=== PATIENT | male | born 1965 | race Caucasian/White ===

== ENCOUNTER → 2017-01-15 | Outpatient (CLI) | payer OTHER, MEDICARE ==
[~2017-01-15] MED LIST: ADV500INH INH; ALBU17IN2 INH; BACT800T5 PO; BP MED PO; CARD120T4 PO; COUM1TAB17 PO; EFFE37.527 PO; FLEXERIL PO; MIRAPEX PO; OXYC-299 PO; PERC5TAB6 PO; TYLE325T5 PO; UROXATRAL PO; VICO7.5T11 PO
[2017-01-15 11:32] LABS: ALBUMIN 4.2 GM/DL (3.2-5.2); ALBUMIN/GLOBULIN RATIO 1.24 (1.00-1.93); ALKALINE PHOSPHATASE 80 U/L (45-117); ALT/SGPT 99 U/L (12-78); ANION GAP 10 MEQ/L (8-16); AST/SGOT 46 U/L (15-37); BILIRUBIN,TOTAL 0.4 MG/DL (0.2-1.0); BLOOD UREA NITROGEN 14 MG/DL (7-18); CALCIUM LEVEL 9.1 MG/DL (8.5-10.1); CARBON DIOXIDE LEVEL 28 MEQ/L (21-32); CHLORIDE LEVEL 103 MEQ/L (98-107); CREATININE FOR GFR 0.92 MG/DL (0.70-1.30); FERRITIN 174 NG/ML (26-388); GLOMERULAR FILTRATION RATE > 60.0 (>56); GLUCOSE, FASTING 101 MG/DL (70-105); PERCENT SATURATION 18.8 % (19.7-37.4); POTASSIUM SERUM 4.2 MEQ/L (3.5-5.1); SODIUM LEVEL 141 MEQ/L (136-145); TOTAL IRON BINDING CAPACITY 404 UG/DL (250-450); TOTAL PROTEIN 7.6 GM/DL (6.4-8.2)
[2017-01-16 11:29] LABS: ALBUMIN % 59.3 % (55.8-66.1)
[2017-01-16 11:30] LABS: ALBUMIN 4.51 GM/DL (3.29-5.55); GAMMA GLOBULIN % 15.7 % (11.1-18.8)
[2017-01-17 08:08] LABS: ALPHA 1 ANTITRYPSIN 144 mg/dL (90-200)
== END ==
LOC: M LRY 08:46
PROVIDERS: ATTEND Emergency Medicine
DX: R94.5 Abnormal results of liver function studies (principal)

== ENCOUNTER → 2017-01-15 | Outpatient (CLI) | payer OTHER, MEDICARE ==
--- NOTE | 2017-01-15 10:28 | REP ---
Clinical: Abnormal liver function tests. Technique: Real time mayfield scale ultrasound examination using curved array transducer. Findings: The liver is diffusely echogenic with poor through transmission suggesting fatty infiltration and no obvious focal hepatic lesion identified. Limited evaluation of the pancreas is unremarkable. The patient is status post cholecystectomy. No biliary ductal dilatation is appreciated and the common bile duct measures 5.1 mm diameter. Right kidney is normal in reniform shape without hydronephrosis and measures 11.4 x 5.6 x 5.6 cm. No ascites. Impression: Hepatosteatosis. Signed by Jigar Martinez MD 01/15/2017 10:20 A
== END ==
LOC: M LRY 08:39
PROVIDERS: ATTEND Emergency Medicine
DX: K76.89 Other specified diseases of liver (principal); R94.5 Abnormal results of liver function studies

== ENCOUNTER 2018-08-05 09:03 | Emergency (ER) | payer OTHER, MEDICARE ==
[2018-08-05] MEDS: NS 1,000 ML IV (09:49)
[2018-08-05] MEDS: ONDANSETRON 4MG/2ML VIAL (J2405) IV (09:49)
[2018-08-05] MEDS: MORPHINE 4 MG/ML 1ML VIAL/SYRINGE (J2270) IV (09:50)
[2018-08-05 09:58] LABS: BASO % 0.2 % (0.0-1.0); EOS % 0.6 % (0.0-3.0); HEMATOCRIT 42.3 % (42.0-52.0); IMMATURE GRANULOCYTE % 0.2 % (0-3.0); LYMPH # 0.4 10^3/uL (1.5-4.5); LYMPH % 8.1 % (24.0-44.0); MEAN CORPUSCULAR HGB CONC 33.1 g/dl (32.0-36.5); MEAN CORPUSCULAR VOLUME 90.8 fl (80.0-96.0); MONO # 0.2 10^3/uL (0.0-0.8); MONO % 4.3 % (0.0-5.0); NEUTROPHILS # 4.7 10^3/uL (1.8-7.7); NEUTROPHILS % 86.6 % (36.0-66.0); PLATELET COUNT, AUTOMATED 272 10^3/uL (150-450); RED BLOOD COUNT 4.66 10^6/uL (4.30-6.10); RED CELL DISTRIBUTION WIDTH 12.8 % (11.5-14.5); WHITE BLOOD COUNT 5.4 10^3/uL (4.0-10.0)
[2018-08-05 10:08] LABS: AMORPHOUS SEDIMENT MODERATE (NEGATIVE); APPEARANCE, URINE TURBID (CLEAR); BACTERIA, URINE AUTO NEGATIVE (NEGATIVE); BILIRUBIN, URINE AUTO NEGATIVE (NEGATIVE); BLOOD, URINE BLOOD 2+ (NEGATIVE); COLOR, URINE YELLOW (YELLOW); GLUCOSE, URINE (UA) AUTO NEGATIVE (NEGATIVE); KETONE, URINE AUTO NEGATIVE (NEGATIVE); LEUKOCYTE ESTERASE, URINE AUTO NEGATIVE (NEGATIVE); MUCUS, URINE SMALL (NEGATIVE); NITRITE, URINE AUTO NEGATIVE (NEGATIVE); PROTEIN, URINE AUTO NEGATIVE (NEGATIVE); RBC, URINE AUTO TNTC /HPF (0-3); SPECIFIC GRAVITY URINE AUTO 1.011 (1.002-1.035); SQUAMOUS EPITHELIAL CELL UR AU 0 /HPF (0-6); UROBILINOGEN, URINE AUTO 0.2 mg/dL (0.0-2.0); WBC, URINE AUTO 3 /HPF (0-3)
[2018-08-05 10:28] LABS: ALBUMIN 4.3 GM/DL (3.2-5.2); ALKALINE PHOSPHATASE 70 U/L (45-117); ALT/SGPT 71 U/L (12-78); AMYLASE 47 U/L (25-115); ANION GAP 6 MEQ/L (8-16); AST/SGOT 33 U/L (7-37); BILIRUBIN,DIRECT < 0.1 MG/DL (0.0-0.2); BILIRUBIN,TOTAL 0.3 MG/DL (0.2-1.0); BLOOD UREA NITROGEN 18 MG/DL (7-18); CALCIUM LEVEL 9.1 MG/DL (8.5-10.1); CARBON DIOXIDE LEVEL 30 MEQ/L (21-32); CHLORIDE LEVEL 105 MEQ/L (98-107); CREATININE FOR GFR 1.17 MG/DL (0.70-1.30); GLOMERULAR FILTRATION RATE > 60.0 (>56); GLUCOSE, FASTING 130 MG/DL (70-100); LIPASE 172 U/L (73-393); POTASSIUM SERUM 4.7 MEQ/L (3.5-5.1); SODIUM LEVEL 141 MEQ/L (136-145); TOTAL PROTEIN 8.2 GM/DL (6.4-8.2)
[2018-08-05] MEDS: KETOROLAC 30 MG/ML VIAL (J1885) IV (11:18)
== END 2018-08-05 11:25 | disposition home or self-care (01) ==
LOC: M ED 09:03
DX: N20.1 Calculus of ureter (principal); Z79.899 Other long term (current) drug therapy; Z88.0 Allergy status to penicillin
CPT/HCPCS: J2270

== ENCOUNTER → 2019-01-17 | Outpatient (CLI) | payer OTHER, MEDICARE ==
[~2019-01-17] MED LIST changes: +CART240C3; +EFFE37.5 PO; -EFFE37.527 PO; +HYDR-3716; +IBUP-1022 PO; +NORCOTAB PO; +OXYC-141 PO; -OXYC-299 PO; +PERC5TAB12 PO; -PERC5TAB6 PO; +PROHANCE 279.3MG/ML 15ML VIAL (A9576) As Ordered ONE; +PROHANCE 279.3MG/ML 5ML VIAL (A9576) As Ordered ONE; +ZOFR4TAB14 PO
--- NOTE | 2019-01-17 09:38 | REP ---
MR LUMBAR SPINE WITHOUT CONTRAST: HISTORY: Spondylosis. CONTRAST: ProHance 18 mL. COMPARISON: 10/18/2012. Decreased signal intensity on T2-weighted images is present in the L4-5 intervertebral disc. The disc is decreased in height. These findings are consistent with disc degeneration. There is no disc bulge or herniation at the L1-2 and L2-3 levels. There is hypertrophy of the posterior articulating facets at the L2-3 level. The nerves exit the neural foramina without compression. A diffuse disc bulge is present at the L3-4 level. There is minimal compression of the thecal sac. There is hypertrophy of the posterior articulating facets. The L3 nerves exit the neural foramina without compression. A diffuse disc bulge and small left paracentral and intraforaminal disc protrusion are present at the L4-5 level. There is minimal compression of the thecal sac and left L5 nerve as it exits the thecal sac. There is hypertrophy of the ligamenta flava and posterior articulating facets. The L4 nerves exit the neural foramina without compression. A left laminectomy defect is present. Enhancing scar tissue is present at the laminectomy site and in the left lateral aspect of the spinal canal. The scar tissue involves the left L5 nerve. A diffuse disc bulge is present at the L5-S1 level. There is no thecal sac or nerve compression. There is hypertrophy of the posterior articulating facets. The L5 nerves exit the neural foramina without compression. The conus medullaris is normal in appearance terminating at the level of the T12-L1 intervertebral disc. Increased signal intensity on T2-weighted images is present in the endplates of the L4 and 5 vertebral bodies. This represents degenerative change. IMPRESSION: 1. Diffuse disc bulge at the L3-4 level with minimal thecal sac compression. 2. Diffuse disc bulge and small left paracentral and intraforaminal disc protrusion at the L4-5 level with minimal compression at the thecal sac and left L5 nerve as it exits the thecal sac. A left laminectomy defect is present. Scar tissue involves the left L5 nerve. The disc protrusion is a new finding. 3. Diffuse disc bugle at the L5-S1 level without thecal sac or nerve compression. Electronically Signed by William Carter MD 01/17/2019 09:45 A
== END ==
LOC: M RAD 07:19
PROVIDERS: ATTEND Orthopaedic Surgery
DX: M47.896 Other spondylosis, lumbar region (principal); M51.26 Other intervertebral disc displacement, lumbar region
CPT/HCPCS: 72158; A9576

== ENCOUNTER → 2019-05-13 | Outpatient (REF) | payer OTHER, MEDICARE ==
[~2019-05-13] MED LIST changes: +HYDR-3715 PO; -NORCOTAB PO; -PROHANCE 279.3MG/ML 15ML VIAL (A9576) As Ordered ONE; -PROHANCE 279.3MG/ML 5ML VIAL (A9576) As Ordered ONE
[2019-05-13 11:36] LABS: INR 0.95; PROTHROMBIN TIME 12.4 SECONDS (11.8-14.0)
[2019-05-13 11:37] LABS: PARTIAL THROMBOPLASTIN TIME 27.9 SECONDS (25.0-38.4)
[2019-05-13 11:46] LABS: COLLAGEN EPINEPHRINE 119 SECONDS (74-162)
== END ==
LOC: M LABDRAWP 11:07
PROVIDERS: ATTEND Physical Medicine & Rehabilitation
DX: Z79.01 Long term (current) use of anticoagulants (principal); D69.6 Thrombocytopenia, unspecified

== ENCOUNTER 2019-12-20 08:46 | Inpatient (IN) | payer OTHER, MEDICARE ==
--- NOTE | 2019-12-16 16:04 | HPE ---
DATE OF ADMISSION: 12/21/2019 ATTENDING PHYSICIAN: Dr. Zapata CHIEF COMPLAINT: Chronic low back pain and stiffness. HISTORY: This is a 54-year-old pleasant male with progressively worsening low back pain and stiffness. He has failed to improve with conservative management, including injections, rest, activity modifications and physical therapy (PT). He has pain with any weightbearing, walking, climbing, kneeling, and bending. This affects his activities of daily living. He has elected for surgery for his continued symptoms. He has consented for an L4-5 decompression with posterior lumbar fusion by Dr. Zapata. Spondylolisthesis at the L4-L5 level and a previous decompression with a pars defect. Decreased disc height at L4-5, moderate in nature with possible foraminal stenosis. ALLERGIES: PENICILLIN and AUGMENTIN, reaction of hives. CURRENT MEDICATIONS: - Cartia XT 240 mg one capsule daily - Cymbalta 60 mg once by mouth daily - Duloxetine 60 mg one by mouth daily - gabapentin 600 mg - Mirapex 0.75 mg - nortriptyline 10 mg one by mouth at bedtime ALLERGIES: No known drug allergies. PAST MEDICAL HISTORY: Chronic neck pain, chronic low back pain, frequent kidney stones, anxiety, hypertension. PAST SURGICAL HISTORY: Lumbar fusion, right arm tendon repair with tendon transposition, right total hip arthroplasty, appendectomy, cholecystectomy, and cervical fusion. SOCIAL HISTORY: The patient is a social drinker. He does not smoke. FAMILY HISTORY: Noncontributory. REVIEW OF SYSTEMS: Denies fever or chills. Denies chest pain, shortness of breath, or cough. Denies difficulty breathing. Denies abdominal pain. Denies nausea or vomiting. Has persistent pain in his low back with any weightbearing activities. Denies upper respiratory or urinary tract symptoms. PHYSICAL EXAMINATION: Height 68, weight 210, temperature 98.7, blood pressure 146/98, heart rate 74, respiratory rate 14. Well nourished, well developed, alert, male patient who walks with a slight limp and forward flexion of his lumbar spine. Skin is intact. There is no erythema, edema or ecchymosis. There is tenderness over the lumbar spine at midline. Range of motion decreased with pain in all planes. Well perfused lower extremities. Neck is supple without adenopathy or jugular venous distention (JVD). Lungs are clear to auscultation without rales or wheeze. Heart has regular rate and rhythm. Abdomen: Bowel sounds are present. Electrocardiogram (EKG) notable for sinus bradycardia. LABORATORIES: BUN 23, creatinine 1.04, GFR greater than 60, chloride 105, sodium 141, potassium 4.3, White count 3.67, red count 4.59, hemoglobin 13.4, hematocrit 42.0. IMPRESSION: 1. Symptomatic spondylolisthesis of the L4-L5. Reviewed pre and post operative instructions to include but not limited to-need to be NPO after midnight, when to stop NSAIDs and ASA, importance of following primarys and cardiologists recommendations for stopping anticoagulants and the primary recommendations for how to take their daily medications PLAN: Consented for L4-L5 decompression with posterior lumbar fusion by Dr. Zapata. DINORA
[~2019-12-20] VITALS: Ht 172.7 cm; Wt 95.2 kg
[~2019-12-20 08:46] MED LIST changes: +ALFU10TA3 PO; -CART240C3; +CART240C3 PO; +CYMB1CAP5 PO; +CelecoXIB 400 MG CAP PO ONE; +LIDOCAINE 1% MDV 20ML VIAL SQ PRN; +LR 1,000 ML IV SCH; +PERCOCET 5MG/325MG TAB PO ONE; -VICO7.5T11 PO; +VICO7.5T12 PO; +ceFAZolin SOD 2 GM in IV 1 EA IV ONE
[2019-12-20] MEDS ORDERED: MIDAZOLAM INJ 2 MG/2 ML VIAL (J2250) As Ordered ONE (09:07)
[2019-12-20] MEDS ORDERED: fentaNYL 250 MCG/5 ML INJECTION (J3010) As Ordered ONE (09:09)
[2019-12-20] MEDS ORDERED: ONDANSETRON 4MG/2ML VIAL (J2405) As Ordered ONE (09:10)
[2019-12-20] MEDS ORDERED: ROCURONIUM BROMIDE 50 MG/5 ML VIAL As Ordered ONE (09:10)
[2019-12-20] MEDS ORDERED: SUGAMMADEX SODIUM 500 MG/5 ML VIAL (BRIDION) As Ordered ONE (09:10)
[2019-12-20] MEDS ORDERED: LIDOCAINE 2% INJ 100 MG/5 ML SDV (FOR ANES.) As Ordered ONE (09:11)
[2019-12-20] MEDS ORDERED: propofoL 200 MG/20 ML VIAL As Ordered ONE (09:11)
[2019-12-20] MEDS ORDERED: dexameTHASONE 4 MG/ML 1ML VIAL (J1100) As Ordered ONE (09:13)
[2019-12-20] MEDS ORDERED: TRANEXAMIC ACID 100 MG/ML 10ML VIAL As Ordered ONE (12:47)
[2019-12-20] MEDS ORDERED: THROMBIN SOLN 20,000 UNITS KIT As Ordered ONE (12:47)
[2019-12-20] MEDS ORDERED: BUPIVACAINE/EPIN 0.25% 30 ML VIAL As Ordered ONE (12:47)
[2019-12-20] MEDS ORDERED: VANCOMYCIN HCL 500 MG/10 ML VIAL (J3370) As Ordered ONE (12:48)
[2019-12-20] MEDS ORDERED: BUPIVACAINE HCL 0.5% 10 ML VIAL As Ordered ONE (12:48)
[2019-12-20] MEDS ORDERED: BUPIVACAINE LIPOSOME/PF 1.3% 20ML VIAL (13.3MG/ML)(EXPAREL)(C9290 PER1MG) As Ordered ONE (12:48)
[2019-12-20] MEDS ORDERED: BACITRACIN PWD 50,000 UNITS VIAL As Ordered ONE (12:48)
[2019-12-20] MEDS ORDERED: EPINEPHrine INJ 1 MG/ML 1ML VIAL As Ordered ONE (12:49)
[2019-12-20] MEDS ORDERED: ACETAMINOPHEN 1000MG 100ML IV BTL (OFIRMEV) (J0131 PER 10MG) As Ordered ONE (13:44)
[2019-12-20] MEDS ORDERED: PHENYLephrine HCL 500 MCG/5 ML (100MCG/ML) SYRINGE (J2370) As Ordered ONE (15:05)
[2019-12-20] MEDS ORDERED: ePHEDrine SULFATE 25 MG/5 ML(5MG/ML) SYRINGE As Ordered ONE (15:11)
[2019-12-20] MEDS ORDERED: PHENYLEPHRINE INJ 10MG/ML VIAL (J2370) As Ordered ONE (15:19)
[2019-12-20] MEDS ORDERED: HYDROmorphone HCL 2 MG/ML 1ML VIAL (J1170) As Ordered ONE (15:27)
[2019-12-20] MEDS ORDERED: ceFAZolin 2 GM/D5W 50 ML IV BAG (J0690 PER 500MG) As Ordered ONE (17:10)
[2019-12-20] MEDS ORDERED: DESFLURANE 240 ML INHALANT As Ordered ONE (17:48)
[2019-12-20] MEDS ORDERED: MORPHINE 10 MG/ML 1ML VIAL (J2270) As Ordered ONE (19:59)
[2019-12-20] MEDS ORDERED: PERCOCET 5MG/325MG TAB PO PRN (20:00)
[2019-12-20] MEDS ORDERED: HYDROMORPHONE HCL 0.5 MG/ 0.5 ML SYRINGE (J1170 PER 1) IV PRN (20:00)
[2019-12-20] MEDS ORDERED: LR 1,000 ML IV SCH (20:00)
[2019-12-20] MEDS ORDERED: ONDANSETRON 4MG/2ML VIAL (J2405) IV PRN (20:00)
[2019-12-20] MEDS: MORPHINE 2 MG/ML 1ML VIAL (J2270) IV PRN ×4 (20:02→20:17)
[2019-12-20] MEDS: fentaNYL 100 MCG/2 ML INJECTION (J3010) IV PRN ×4 (20:24→20:44)
[2019-12-20] MEDS ORDERED: MORPHINE 2 MG/ML 1ML VIAL (J2270) IV PRN (21:15)
[2019-12-20 21:45] VITALS: BP 139/93
[2019-12-20 22:15] VITALS: BP 143/83
[2019-12-20] MEDS: HYDROMORPHONE HCL 0.5 MG/ 0.5 ML SYRINGE (J1170 PER 1) IV PRN (22:29)
[2019-12-20 23:15] VITALS: BP 136/86
[2019-12-21] VITALS (7 sets, daily range): BP systolic 129–163; BP diastolic 85–106
[2019-12-21] MEDS ORDERED: PERCOCET 5MG/325MG TAB PO PRN ×2
[2019-12-21] MEDS ORDERED: NORTRIPTYLINE 10 MG CAP PO PRN
[2019-12-21] MEDS ORDERED: PROMETHAZINE INJ 25 MG/ML VIAL (J2550) IV PRN
[2019-12-21] MEDS: HYDROMORPHONE HCL 0.5 MG/ 0.5 ML SYRINGE (J1170 PER 1) IV PRN ×3 (02:52→18:23)
[2019-12-21] MEDS: MORPHINE 15 MG SA TAB PO SCH ×2 (05:55→20:16)
[2019-12-21] MEDS ORDERED: OXYC-517 PO (05:58)
[2019-12-21] MEDS ORDERED: diphenhydrAMINE 25 MG CAP PO PRN (06:15)
[2019-12-21] MEDS: ceFAZolin SOD 2 GM in IV 1 EA IV SCH ×2 (09:31→16:52)
[2019-12-21] MEDS: PRAMIPEXOLE 0.25 MG TAB PO SCH (09:32)
[2019-12-21] MEDS: DULoxetine 30 MG CAP (CYMBALTA) PO SCH (09:32)
[2019-12-21] MEDS: CYCLOBENZAPRINE 10 MG TAB PO SCH ×3 (09:33→20:15)
[2019-12-21] MEDS: GABAPENTIN 300 MG CAP PO SCH ×3 (09:33→20:15)
--- NOTE | 2019-12-21 14:45 | RO ---
DATE OF PROCEDURE: 12/20/2019 PREOPERATIVE DIAGNOSIS: Chronic left lower extremity radiculopathy and back pain, failed previous back surgery. POSTOPERATIVE DIAGNOSES: Chronic left lower extremity radiculopathy and back pain, failed previous back surgery. Also appreciated pars defect at L4. PROCEDURE PERFORMED: L4 through unilateral laminectomy for decompression of the thecal sac and nerve root. This included removal of the lamina, excision of the pars defect and inferior facet largely resected on the left L4 to allow decompression. L5 left unilateral laminectomy including removal of the superior lamina of 5 and facetectomy the superior facet 5. Posterior spinal fusion intertransverse and inter-facet bilaterally. Left iliac crest bone graft harvest, local bone graft harvest pedicle screw instrumentation bilaterally at L4 and L5. SURGEON: Dr. Aydin Zapata. REAMING MACHINE TENDER: Mr. Matthew Kirkland PA-C ANESTHESIA: General. ESTIMATED BLOOD LOSS: 600 mL , replaced with crystalloid. COMPLICATIONS: No complications. COMPONENTS USED: Include the [employer] J and J Expedium system size 5.5 mm, 7 mm screws x 45 mm screws times three, 7 mm screw x 40 mm screw times one. Appropriate end caps 40 mm connecting jimmy bilaterally. Also utilized 30 mL crushed cancellus bone graft donor bone. INDICATIONS: Intractable discomfort down the left lower extremity going on for months and perhaps years. Previous history of a left decompression, discectomy with Dr. Pagan in the past at L4-5. He has failed conservative management including injections and elected for operative intervention. Consent reviewed in detail including a gwendolyn discussion of the pathology involved procedure proposed, alternatives including doing nothing and risks including not limited to pain, failure, infection, bleeding blood loss, incomplete relief of symptoms, need for additional surgery and other issues. The patient agrees to proceed with surgery. DESCRIPTION OF PROCEDURE: Identified in the holding area, site side verified, brought to the operating room, anesthesia was administered. He was positioned on the Beni frame for exposure of the lumbar spine, knees slightly flexed, sequential compression device (SCDs) and thromboembolic deterrent stockings (TEDS) were utilized. Once I and the transport corps officer were comfortable with the patient's positioning, he was then sterilely prepped and draped in the usual fashion. I utilized loupe and headlamp magnification for the first portion of procedure. Also used the operating microscope later. I initially stood on the patient's left side. Time-out was accomplished. We anesthetized his previous incision, and based on bony landmarks, incision was made with a 10-blade developed down through skin and subcuticular tissues to the posterior lumbar fascia. We appreciated significant scarring. The dissection continued releasing the posterior lumbar fascia from the spinous process of L4 and L5 continuing down the L4 lamina and out over the L4-5 facet complex on the left with dealing with scar tissue the entirety of that dissection. Next, on the contralateral side, we likewise dissected. Interestingly, he seemed to be somewhat fibrotic on his right side as well. Dissection continued over the L4-L5 lamina. Once this was accomplished I drilled the divot and the lamina and we obtained a cross-table lateral x-ray to verify our level. Once this was accomplished, Sunny Marita assisted with his retractors and we exposed out to the transverse process of 4 and 5 bilaterally to allow bone graft placement. Next, once this was accomplished we irrigated. We also irrigated with TXA solution for hemostasis. The patient had relatively significant venous oozing through this portion of this procedure with no identifiable and no coagulable source with the bipolar, just rather diffuse from the soft tissues. Next, the operating microscope was draped and brought in. We then utilized the Leksell as well as the high-speed bur to implement the left unilateral laminectomy of L4 extending superiorly toward the bare area of 4 removing the inferior facet of 4 continuing inferiorly. We did appreciate a significant scarred in bone spur from the inferior facet of 4 and this was meticulously removed using curets. It seemed to be impressing on the thecal sac significantly. This dissection took a significant amount of time. The superior facet of 5 also debrided to the bare area of 5. Next, I was able to palpate the pedicle of 4 and the neural foramen of 4 and we verified that this was decompressed. I was not able to remove any friable disc material. Irrigation was accomplished. At this stage we irrigated again we turned our attention to getting iliac crest bone graft for the fusion portion of the case. The left iliac crest was exposed through a separate fascial incision. This was opened. I obtained morselized iliac crest in the usual fashion using curets and Leksell. I then irrigated including irrigation with TXA as well as Exparel injection, closed this area over thrombin and dry Gelfoam. Once this was accomplished, the local bone was mixed with the iliac crest bone and some demineralized bone matrix putty. Once this was accomplished, we placed pedicle screws. We began placing pedicle screws in the patient's left side. For this we re-donned the lamp and my headlamp and loupes and the operating microscope was removed from the field. Next we utilized fluoroscopy extensively because this patient's medical landmarks were significantly aberrant especially on the left and interestingly to a degree of the right side. Also of note, previously during the decompression laminectomy we appreciated a pars defect at L4, which I had not noted on the MRI but clearly there was a pars defect that was part of the unilateral laminectomy at 4 and took additional time. The inferior facet of 4 was significantly mobile. Next, continuing, in terms of pedicle screws were utilized fluoroscopy to localize the lateral border of the L4 and the L5 pedicle. We drilled at the lateral border of the pedicle and advanced across the pedicle using AP as well as lateral fluoroscopy to the posterior vertebral body wall. Lateral fluoroscopy was utilized to direct the pedicle finder. I verify the pedicle tract using the ball-tipped guide. Once the tract was verified, I then tapped using a size 6 tap and then verified again with the ball-tip that we were in the bony tunnel into the vertebral body. We also verified the placement of the ball-tip with fluoroscopy in AP and lateral plane as well as the pedicle finder and all of the taps. We measured for a 45 screw at the L4 level on the left and the 40 screw at the L5 level on the left. These screws were placed, connecting jimmy was placed. I tightened the superior end caps and distracted across the connecting jimmy to open the neural foramina at bit further and then locked the end caps. Next, we turned our attention to placement of pedicle screws on the patient's right side. They were placed in a similar and same usual fashion, but again we had to localized the pedicles with fluoroscopy more so than the typical landmarks as they were somewhat dysplastic. Next we utilized the drill under fluoroscopy, followed by placement of the pedicle finder, followed by sounding with a ball-tipped guide, followed by tapping with a 7-0 tap, followed by measurement with the ball-tipped guide, measured 45 at both sites on the patient's right side. I placed those screws bilaterally after sounding the ball-tip and also fluoroscopic visualization in AP and lateral plane. Once the screws placed we distracted across the screws and locked the end caps sterilely into place. Irrigation was accomplished. The iliac crest bone graft was placed between the transverse processes of 4 and 5 bilaterally. On the patient's right side, an additional 30 mL of crushed cancellus was placed over the transverse processes and around the facet complex, which remained in some the interlaminar space around the pedicle screws. Next, prior to doing this, we copiously irrigated including irrigation with concentrated bacitracin. We also sprinkled vancomycin crystals into the wound at this stage. Next, because the patient's observed tendency to have some venous bleeding during the case, we did place a drain exiting superior laterally to the left although there was no active bleeding at the conclusion of the case. Next we removed our retractors. The operating microscope had been removed prior to screw placement. We were using loupe magnification at this stage. We closed the posterior lumbar fascia with interrupted stitch, deep dermis with interrupted stitch. We took great care to avoid the drain. Once this was accomplished, we closed the skin using pernio dressing and then dressed separately the exiting of the drain with 4x4s and ABD. The patient was log-rolled to the hospital bed, extubated, moved to recovery room in good condition. For further details please refer to medical record. Mr. Kirkland participated in the entirety of the case as the assistant professor of marine biology.
[2019-12-22] MEDS: HYDROMORPHONE HCL 0.5 MG/ 0.5 ML SYRINGE (J1170 PER 1) IV PRN (03:35)
[2019-12-22 05:45] VITALS: BP 137/84
[2019-12-22] MEDS ORDERED: HYDR-3713 PO (05:56)
[2019-12-22] MEDS ORDERED: NORCO, ANEXSIA 5/325MG TABLET (HYDROcodone/ACETAMINOPHEN) PO PRN ×2 (06:00)
[2019-12-22] MEDS ORDERED: CYCL10TA PO (08:24)
[2019-12-22 09:00] VITALS: BP 128/84
[2019-12-22] MEDS ORDERED: FLUBLOK(EGG FREE)(QUAD)INFLUENZA VACC 0.5ML SYRINGE (90682)18YRS&OLDER IM ONE (09:00)
[2019-12-22 09:09] VITALS: BP 128/84
[2019-12-22] MEDS: DULoxetine 30 MG CAP (CYMBALTA) PO SCH (09:41)
[2019-12-22] MEDS: CYCLOBENZAPRINE 10 MG TAB PO SCH (09:42)
[2019-12-22] MEDS: PRAMIPEXOLE 0.25 MG TAB PO SCH (09:43)
[2019-12-22] MEDS: GABAPENTIN 300 MG CAP PO SCH (09:44)
[2019-12-22] MEDS: MORPHINE 15 MG SA TAB PO SCH (09:53)
[2019-12-22 14:00] VITALS: BP 143/80
--- NOTE | 2019-12-22 21:13 | REP ---
PORTABLE VIEWS LUMBAR SPINE: Four portable views of the lumbar spine performed. An image at 2:30 pm and another image at 4:40 pm both show a posterior metallic probe which is at the L4 vertebral body level. 2 images are obtained at approximately 6:48 and 6:49 pm showing posterior fusion rods and pedicle screws bridging the posterior L4 and L5 levels with good alignment of L3 through S1. 2 minutes 5 seconds fluoroscopy time utilized. Electronically Signed by Marciano Sadler MD 12/23/2019 12:50 P
== END 2019-12-22 15:15 | disposition home or self-care (01) | DRG 460 ==
LOC: M OR 08:46 → M MS5PR 21:50
PROVIDERS: ADMIT Orthopaedic Surgery; ATTEND Orthopaedic Surgery
PROC: 0QB30ZZ Excision of Left Pelvic Bone, Open Approach (ICD-10-PCS; 2019-12-20)
PROC: 0SG00AJ Fusion of Lumbar Vertebral Joint with Interbody Fusion Device, Posterior Approach, Anterior Column, Open Approach (ICD-10-PCS; principal; 2019-12-20 10:50)
DX: M43.16 Spondylolisthesis, lumbar region (principal); Z88.0 Allergy status to penicillin; Z79.899 Other long term (current) drug therapy; I10 Essential (primary) hypertension; M54.2 Cervicalgia; F41.9 Anxiety disorder, unspecified; Z96.641 Presence of right artificial hip joint

== ENCOUNTER 2021-05-05 22:16 | Emergency (ER) | payer OTHER, MEDICARE ==
[~2021-05-05] VITALS: Ht 172.7 cm; Wt 87.7 kg
[~2021-05-05 22:16] MED LIST changes: +CYCL-707 PO; -CelecoXIB 400 MG CAP PO ONE; +HYDR-3713 PO; -LIDOCAINE 1% MDV 20ML VIAL SQ PRN; -LR 1,000 ML IV SCH; +OXYC-517 PO; -PERCOCET 5MG/325MG TAB PO ONE; -ceFAZolin SOD 2 GM in IV 1 EA IV ONE
[2021-05-05 22:17] VITALS: BP 135/75
--- NOTE | 2021-05-06 00:18 | REPVR ---
PROCEDURE INFORMATION: Exam: XR Right Ankle Exam date and time: 05/05/2021 10:58 PM Age: 55 years old Clinical indication: Pain; Ankle; Right; Additional info: Injury pain TECHNIQUE: Imaging protocol: XR Right ankle. Views: 3 or more views. COMPARISON: US Duplex, Ext,LOWER veins,unilat 10/10/2014 4:57 PM FINDINGS: Bones/joints: Slightly displaced oblique fracture of the distal fibula. Minimal cortical avulsion fracture from the tip of the medial malleolus. The joint space is adequately well maintained. Soft tissues: Soft tissue swelling laterally. IMPRESSION: 1. Slightly displaced oblique fracture of the distal fibula. 2. Minimal cortical avulsion fracture from the tip of the medial malleolus. 3. Soft tissue swelling about the lateral aspect of the ankle. Electronically signed by: Gume Grider On 05/06/2021 00:18:11 AM
--- NOTE | 2021-05-06 00:20 | REPVR ---
PROCEDURE INFORMATION: Exam: XR Right Foot Exam date and time: 05/05/2021 10:58 PM Age: 55 years old Clinical indication: Pain; Foot; Right; Additional info: Injury pain TECHNIQUE: Imaging protocol: XR Right foot. Views: 3 or more views. COMPARISON: US Duplex, Ext,LOWER veins,unilat 10/10/2014 4:57 PM FINDINGS: Bones/joints: Slightly displaced oblique fracture of the distal fibula. No fractures of the foot. No dislocation. Soft tissues: Normal. IMPRESSION: 1. Slightly displaced oblique fracture of the distal fibula. 2. Negative right foot. No foot fracture. Electronically signed by: Gume Grider On 05/06/2021 00:20:09 AM
[2021-05-06] MEDS ORDERED: PERC5TAB12 PO (01:50)
[2021-05-06] MEDS ORDERED: OXYCODONE/APAP 5MG/325MG(BULK FOR ED) 1 TABLET PO ONE (01:50)
== END 2021-05-06 02:25 | disposition home or self-care (01) ==
LOC: M ED 22:16
DX: S82.431A Displaced oblique fracture of shaft of right fibula, initial encounter for closed fracture (principal); W18.40XA Slipping, tripping and stumbling without falling, unspecified, initial encounter; Y92.009 Unspecified place in unspecified non-institutional (private) residence as the place of occurrence of the external cause; Y93.9 Activity, unspecified; Y99.9 Unspecified external cause status; Z79.899 Other long term (current) drug therapy; Z88.0 Allergy status to penicillin

== ENCOUNTER → 2021-05-24 | Outpatient (CLI) | payer OTHER, MEDICARE ==
--- NOTE | 2021-05-24 16:40 | REP ---
INDICATION: RIGHT INGUINAL PAIN. COMPARISON: 08/05/2018 TECHNIQUE: Standard helical technique using 3 mm increments and reconstructed in both sagittal and coronal planes along with bone and soft tissue settings FINDINGS: There is a total right hip prosthetic device in place the femoral and acetabular components appear well seated and well approximated. There is no evidence of an acute fracture, dislocation, or subluxation. Transpedicular screws are seen in L4 and L5. These have been placed since the last CT. The imaged vertebral bodies are well aligned and of normal height with posterior disc space narrowing. The pelvic soft tissues are unremarkable. There is no evidence of a mass or adenopathy. The imaged bowel loops are unremarkable. There is no evidence of free pelvic fluid or air. IMPRESSION: Postoperative changes as described above. There is no evidence of an acute abnormality. <Electronically signed by Branden Franz > 05/24/21 [id number]
== END ==
LOC: M RAD 15:44
PROVIDERS: ATTEND Nurse Practitioner Family
DX: R10.9 Unspecified abdominal pain (principal)

== ENCOUNTER → 2021-08-05 | Outpatient (CLI) | payer OTHER, MEDICARE ==
--- NOTE | 2021-08-07 04:58 | REP ---
INDICATION: DISP FX OF LATERAL MALLEOLUS OF R FIBULA. COMPARISON: X-rays dated 05/05/2021 TECHNIQUE: Axial, coronal, and sagittal noncontrast images through the right ankle. This CT examination was performed using the following dose reduction techniques: Automated exposure control, adjustment of mA and/or kv according to the patient's size, and use of iterative reconstruction technique. FINDINGS: There is a relatively nondisplaced oblique fracture involving the distal fibular metaphysis which exhibits small amount of periosteal reaction primarily along the posterior surface. The oblique fracture line through the distal fibula running anteroinferiorly early exhibits some element of sclerosis suspicious for nonhealing/pseudoarthrosis. There is a relatively nondisplaced fracture of the posterior malleolus which exhibits small amount of periosteal reaction along the posterior surface of the distal tibia while the remainder of the fracture line appears smooth and slightly sclerotic suspicious for nonhealing/pseudoarthrosis. Surrounding soft tissues are relatively normal. Elements of peripheral atherosclerotic disease noted. IMPRESSION: Findings suggest partial healing as well as suspicions for forming pseudoarthroses. <Electronically signed by Jigar Martinez > 08/07/21 [id number]
== END ==
LOC: M RAD 14:36
PROVIDERS: ATTEND Physician Assistant
DX: S82.61XS Displaced fracture of lateral malleolus of right fibula, sequela (principal)

== ENCOUNTER → 2021-10-02 | Outpatient (CLI) | payer OTHER, MEDICARE | LOC: M PLALAB 11:03 | PROVIDERS: ATTEND Physician Assistant | DX: S82.61XG Displaced fracture of lateral malleolus of right fibula, subsequent encounter for closed fracture with delayed healing (principal); Y92.9 Unspecified place or not applicable; Y93.9 Activity, unspecified; Y99.9 Unspecified external cause status | CPT/HCPCS: 36415; 82310; 82652; G0480 ==

== ENCOUNTER 2022-11-21 19:47 | Emergency (ER) | payer OTHER, MEDICARE ==
[~2022-11-21] VITALS: Ht 172.7 cm; Wt 90.9 kg
[2022-11-21 21:50] LABS: BASO % 0.1 % (0.0-1.0); EOS # 0.2 10^3/uL (0.0-0.5); EOS % 2.2 % (0.0-3.0); HEMATOCRIT 42.4 % (42.0-52.0); HEMOGLOBIN 14.2 g/dl (13.5-17.5); LYMPH % 9.7 % (24.0-44.0); MEAN CORPUSCULAR HEMOGLOBIN 30.6 pg (27.0-33.0); MEAN CORPUSCULAR HGB CONC 33.5 g/dl (32.0-36.5); MEAN CORPUSCULAR VOLUME 91.4 fl (80.0-96.0); MONO # 0.7 10^3/uL (0.0-0.8); NEUTROPHILS # 7.9 10^3/uL (1.5-8.5); NEUTROPHILS % 80.5 % (36.0-66.0); PLATELET COUNT, AUTOMATED 247 10^3/uL (150-450); RED BLOOD COUNT 4.64 10^6/uL (4.30-6.10); WHITE BLOOD COUNT 9.8 10^3/uL (4.0-10.0)
[2022-11-21 22:15] LABS: BLOOD UREA NITROGEN 21 MG/DL (9-23); CALCIUM LEVEL 8.9 MG/DL (8.5-10.1); CARBON DIOXIDE LEVEL 27 MMOL/L (20-31); CHLORIDE LEVEL 103 MMOL/L (98-107); CPK CREATINE PHOSPHOKINASE 120 U/L (46-171); CREATININE FOR GFR 0.98 MG/DL (0.70-1.30); GLOMERULAR FILTRATION RATE > 60.0 (>56); GLUCOSE, FASTING 98 MG/DL (60-100); SODIUM LEVEL 138 MMOL/L (136-145)
[2022-11-21 22:16] LABS: CK-MB VALUE MASS < 1.0 NG/ML (<3.6); MB/CK RELATIVE INDEX 0.83 (< OR =4)
[2022-11-21] MEDS ORDERED: ISOVUE-370 76% 100ML VIAL As Ordered ONE (22:52)
[2022-11-21] MEDS ORDERED: ONDANSETRON 4MG ORAL DISINTEGRATING TAB PO ONE (23:30)
[2022-11-22 00:18] LABS: CK-MB VALUE MASS < 1.0 NG/ML (<3.6)
[2022-11-22 00:22] LABS: CPK CREATINE PHOSPHOKINASE 112 U/L (46-171); MB/CK RELATIVE INDEX 0.89 (< OR =4)
[2022-11-22 01:24] VITALS: BP 130/75
[2022-11-22] MEDS ORDERED: PRED20TA PO (03:19)
[2022-11-22] MEDS ORDERED: BENZ200C70 PO (03:19)
[2022-11-22] MEDS ORDERED: predniSONE 20 MG TAB PO ONE (03:20)
[2022-11-22] MEDS ORDERED: BENZONATATE 100MG CAPSULE PO ONE (03:20)
== END 2022-11-22 03:48 | disposition home or self-care (01) ==
LOC: EDBD 19:47 → M ED 19:47
DX: R05.9 Cough, unspecified (principal); I10 Essential (primary) hypertension; F10.10 Alcohol abuse, uncomplicated; Z88.0 Allergy status to penicillin; Z79.811 Long term (current) use of aromatase inhibitors; Z79.83 Long term (current) use of bisphosphonates; Z79.899 Other long term (current) drug therapy
CPT/HCPCS: 36415; 71275; 80048; 82550; 82553; 84484; 85025; 87486; 87581; 87633; 87798; 93005; 99284; J7512

== ENCOUNTER → 2023-10-26 | Outpatient (CLI) | payer OTHER, MEDICARE ==
[~2023-10-26] MED LIST changes: +BENZ200C70 PO; -EFFE37.5 PO; +EFFE37.52 PO; +PRED20TA PO
[2023-10-26 13:28] LABS: PLATELET COUNT, AUTOMATED 243 10^3/uL (150-450)
[2023-10-26 13:55] LABS: INR 0.96; PROTHROMBIN TIME 12.5 SECONDS (12.5-14.5)
[2023-10-26 13:56] LABS: PARTIAL THROMBOPLASTIN TIME 24.7 SECONDS (24.8-34.2)
[2023-10-26 13:57] LABS: COLLAGEN EPINEPHRINE 125 SECONDS (74-162)
== END ==
LOC: M LAB 13:03
PROVIDERS: ATTEND Orthopaedic Surgery
DX: Z01.818 Encounter for other preprocedural examination (principal); Z79.01 Long term (current) use of anticoagulants

== ENCOUNTER 2024-03-17 11:54 | Day surgery (SDC) | payer OTHER, MEDICARE ==
[~2024-03-17] VITALS: Ht 172.7 cm; Wt 89.8 kg
[~2024-03-17 11:54] MED LIST changes: +DILT300C21 PO; +DULO1CAP6 PO; +[UNRECOGNIZED DRUG - CODE] PO
[2024-03-17] MEDS ORDERED: LR 1,000 ML IV SCH ×2 (12:05→17:55)
[2024-03-17] MEDS ORDERED: fentaNYL 100 MCG/2 ML INJECTION As Ordered ONE (15:38)
[2024-03-17] MEDS ORDERED: ROCURONIUM BROMIDE 50MG/5ML VIAL As Ordered ONE (15:38)
[2024-03-17] MEDS ORDERED: LIDOCAINE 2% 100MG/5ML SDV (FOR ANES.) As Ordered ONE (15:38)
[2024-03-17] MEDS ORDERED: propofoL 200 MG/20 ML VIAL As Ordered ONE (15:38)
[2024-03-17] MEDS ORDERED: ONDANSETRON 4MG 2ML VIAL As Ordered ONE (15:38)
[2024-03-17] MEDS ORDERED: MIDAZOLAM INJ 2MG/2ML VIAL As Ordered ONE (15:39)
[2024-03-17] MEDS ORDERED: KETOROLAC 60MG 2ML VIAL As Ordered ONE (15:39)
[2024-03-17] MEDS ORDERED: SUGAMMADEX SODIUM 500 MG/5 ML VIAL (BRIDION) As Ordered ONE (15:39)
[2024-03-17] MEDS ORDERED: HYDR-3713 PO (15:45)
[2024-03-17] MEDS: ceFAZolin SOD 2 GM in IV 1 EA IV ONE (16:01)
[2024-03-17] MEDS: HEPARIN SOD (PORCINE) 5000UNITS/ML 1ML VIAL/SYRINGE SQ ONE (16:30)
[2024-03-17] MEDS ORDERED: ACETAMINOPHEN 1000MG 100ML IV BAG As Ordered ONE (16:40)
[2024-03-17] MEDS ORDERED: dexmedeTOMIDine (4MCG/ML)200MCG/50ML BTL (PRECEDEX) As Ordered ONE (17:32)
[2024-03-17] MEDS ORDERED: METOCLOPRAMIDE INJ 10MG/2ML VIAL IV PRN (17:55)
[2024-03-17] MEDS ORDERED: MEPERIDINE 25 MG/ML 1ML VIAL IV PRN (17:55)
[2024-03-17] MEDS ORDERED: diphenhydrAMINE 50MG/ML VIAL IV PRN (17:55)
[2024-03-17] MEDS ORDERED: ONDANSETRON 4MG 2ML VIAL IV PRN (17:55)
[2024-03-17] MEDS ORDERED: fentaNYL 100 MCG/2 ML INJECTION IV PRN (17:55)
[2024-03-17] MEDS: HYDROMORPHONE HCL 0.5 MG/ 0.5 ML SYRINGE IV PRN (18:02)
[2024-03-17] MEDS: oxyCODONE 5MG TAB PO PRN (18:05)
[2024-03-17 19:28] VITALS: BP 126/72; TEMP 97.6; O2SAT 98
== END 2024-03-17 19:33 | disposition home or self-care (01) ==
LOC: M SDC 11:54
PROVIDERS: ATTEND Surgery
DX: K40.90 Unilateral inguinal hernia, without obstruction or gangrene, not specified as recurrent (principal); I25.2 Old myocardial infarction; G47.30 Sleep apnea, unspecified; Z79.899 Other long term (current) drug therapy; Z88.0 Allergy status to penicillin; Z88.1 Allergy status to other antibiotic agents; Z88.8 Allergy status to other drugs, medicaments and biological substances; Z96.641 Presence of right artificial hip joint
CPT/HCPCS: 49650; C1781; J0131; J0665; J0690; J1100; J1170; J1885; J2250; J2405; J3010

== ENCOUNTER → 2025-03-27 | Outpatient (CLI) | payer OTHER, MEDICARE ==
[~2025-03-27] MED LIST changes: -ADV500INH INH; +ADVA1AER10 INH; +ALFU10TA23 PO; -ALFU10TA3 PO
== END ==
LOC: M RAD 15:40
PROVIDERS: ATTEND Student in an Organized Health Care Education/Training Program
DX: M48.02 Spinal stenosis, cervical region (principal); M47.812 Spondylosis without myelopathy or radiculopathy, cervical region; M25.78 Osteophyte, vertebrae